=== PATIENT | male | born 1950 | race Caucasian/White ===

== ENCOUNTER 2023-06-15 06:01 | Day surgery (SDC) | payer MEDICARE, OTHER, SELFPAY ==
[2023-06-15] VITALS (9 sets, daily range): BP systolic 124–171; BP diastolic 70–91
[2023-06-15 06:33] LABS: Glucose - Point of Care 143 mg/dl (70-99)
[2023-06-15 09:28] LABS: Glucose - Point of Care 152 mg/dl (70-99)
== END 2023-06-15 10:30 | disposition home or self-care (01) ==
LOC: SDS 06:01
PROVIDERS: ATTENDING PHYSICIAN Specialist
DX: A63.0 Anogenital (venereal) warts (principal); N40.1 Benign prostatic hyperplasia with lower urinary tract symptoms; R39.15 Urgency of urination; R35.0 Frequency of micturition
CPT/HCPCS: 54065; 88304; 82962